=== PATIENT | female | born 1965 | race Caucasian/White ===

== ENCOUNTER → 2016-10-03 | Outpatient (CLI) | payer BC, OTHER ==
--- NOTE | 2016-10-04 08:11 | XCELERA REPORT ---
[address] [address] Lower Extremity Venous Evaluation Name: BEBE DICKERSON Age: 51 yrs Gender: Female : 1965 Patient Status: Outpatient Patient Location: Study Date: 10/03/2016 03:08 PM Procedure: Color flow and duplex imaging of the veins of the left lower extremity as well as the right Common Femoral vein. Reason For Study: LLE PAIN AND EDEMA Ordering Physician: KRISTIAN KO Performed By: Oscar Christy Right Sided Venous Evaluation The right common femoral vein is fully compressible. Spontaneous and phasic flow is present in the right common femoral vein. Left Sided Venous Evaluation Significant reflux noted in the Greater Saphenous vein, below the knee. A left Popliteal, lucent, non vascular mass, 4.7 x 1.5 cms noted. Normal vessel filling wall to wall, compression and augmentation as well as Colour flow down to the infrageniculate veins. Critical Findings Called in to DARLENE Ko. Interpretation Summary No duplex evidence of DVT or obstruction in the left lower extremity nor in the right Common Femoral vein. Greater Saphenous reflux, and a Popliteal cyst are noted in the left lower extremity. These may account for symptoms. : KRISTIAN KO > Haresh Giordano
== END ==
LOC: SP 14:50
PROVIDERS: ATTEND Physician Assistant
DX: M25.562 Pain in left knee (principal); M79.605 Pain in left leg; R60.9 Edema, unspecified
CPT/HCPCS: 93971